=== PATIENT | female | born 2000 | race African-American/Black ===

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

== ENCOUNTER 2018-12-20 09:44 | Day surgery (SDC) | payer OTHER ==
[~2018-12-20] VITALS: Ht 162.6 cm; Wt 74.5 kg
[2018-12-20] MEDS ORDERED: RINGERS SOLUTION,LACTATED 1,000 ML IV ONE ×2 (09:52→10:30)
[2018-12-20] MEDS ORDERED: NAPR-1193 PO (10:27)
[2018-12-20 10:39] LABS: BASOPHILS % (AUTO) 0.6 % (0.0-2.0); EOSINOPHILS % (AUTO) 6.8 % (1.0-6.0); HEMATOCRIT 37.4 % (36-46); HEMOGLOBIN 12.4 g/dL (12.0-16.0); LYMPHOCYTES # (AUTO) 1.6 K/uL (1.0-4.8); LYMPHOCYTES % (AUTO) 29.4 % (22.0-44.0); MEAN CORPUSCULAR HEMOGLOBIN 27.2 pg (26.0-34.0); MEAN CORPUSCULAR HGB CONC 33.1 G/dL (31.0-37.0); MEAN CORPUSCULAR VOLUME 82 fL (80-100); MONOCYTES # (AUTO) 0.4 K/uL (0.1-1.0); MONOCYTES % (AUTO) 6.7 % (2.0-9.0); NEUTROPHILS % (AUTO) 56.5 % (40.0-70.0); PLATELET COUNT (AUTO) 285 K/uL (150-450); RED BLOOD CELL COUNT(AUTO) 4.55 MIL/uL (4.00-5.20)
[2018-12-20] MEDS ORDERED: OXYTOCIN 10 UNITS/ML VIAL IM ONE ×2 (11:14→11:18)
[2018-12-20] MEDS ORDERED: METHYLERGONOVINE MALEATE 0.2 MG/ML VIAL ONE (11:14)
[2018-12-20] MEDS ORDERED: BUPIVACAINE HCL/PF 0.25% 30 ML VIAL ONE (11:49)
[2018-12-20] MEDS ORDERED: KETOROLAC TROMETHAMINE 60 MG/2 ML VIAL IM ONE (12:00)
[2018-12-20] MEDS ORDERED: PROPOFOL 1% 20 ML VIAL IVP ONE (12:00)
[2018-12-20] MEDS ORDERED: LIDOCAINE/PF 2% 5 ML VIAL INJ ONE (12:00)
== END 2018-12-20 13:20 | disposition home or self-care (01) ==
LOC: SURGERY 09:44
PROVIDERS: ATTEND Obstetrics & Gynecology
DX: O02.1 Missed abortion (principal); I10 Essential (primary) hypertension; Z79.899 Other long term (current) drug therapy
CPT/HCPCS: 36415; 59820; 85025; 86850; 86900; 86901; 88305; J1885; J2704; J3490 ×2; J7120; J2210; J2590

== ENCOUNTER 2018-12-25 21:05 | Emergency (ER) | payer OTHER ==
[~2018-12-25] VITALS: Ht 162.6 cm; Wt 75.5 kg
[~2018-12-25 21:05] MED LIST changes: +NAPR-1193 PO; -NOCURR
[2018-12-25] MEDS ORDERED: IBUP-2077 PO (21:28)
[2018-12-25 22:41] LABS: BASOPHILS % (AUTO) 0.5 % (0.0-2.0); EOSINOPHILS % (AUTO) 7.8 % (1.0-6.0); HEMATOCRIT 35.6 % (36-46); HEMOGLOBIN 11.7 g/dL (12.0-16.0); LYMPHOCYTES # (AUTO) 3.1 K/uL (1.0-4.8); LYMPHOCYTES % (AUTO) 34.6 % (22.0-44.0); MEAN CORPUSCULAR HEMOGLOBIN 27.1 pg (26.0-34.0); MEAN CORPUSCULAR HGB CONC 32.9 G/dL (31.0-37.0); MEAN CORPUSCULAR VOLUME 82 fL (80-100); MONOCYTES # (AUTO) 0.7 K/uL (0.1-1.0); NEUTROPHILS # (AUTO) 4.4 K/uL (1.8-7.7); NEUTROPHILS % (AUTO) 49.1 % (40.0-70.0); PLATELET COUNT (AUTO) 307 K/uL (150-450); RED BLOOD CELL COUNT(AUTO) 4.32 MIL/uL (4.00-5.20); RED CELL DISTRIBUTION WIDTH 16.5 % (11.5-14.5)
[2018-12-25 22:48] LABS: APPEARANCE,URINE CLOUDY (CLEAR); BILIRUBIN,URINE NEGATIVE (NEGATIVE); GLUCOSE, URINE (UA) NEGATIVE (NEGATIVE); KETONES,URINE TRACE mg/dL (NEGATIVE); LEUKOCYTE ESTERASE ,URINE SMALL (NEGATIVE); NITRATE,URINE NEGATIVE (NEGATIVE); OCCULT BLOOD,URINE LARGE (NEGATIVE); PROTEIN,URINE POS 1+ (NEGATIVE); UROBILINOGEN,URINE 0.2 mg/dL (<=1.0)
[2018-12-25 22:54] LABS: ANION GAP 5 mmol/L (8-16); CALCIUM, TOTAL 9.1 mg/dL (8.8-10.5); CARBON DIOXIDE 28 mmol/L (22-29); CHLORIDE 102 mmol/L (98-107); CREATININE 1.09 mg/dL (0.60-1.30); GLOMERULAR FILTR. RATE CALC > 60 mL/min (>60); GLUCOSE,RANDOM 100 mg/dL (70-110); POTASSIUM 3.7 mmol/L (3.5-5.1); SODIUM SERUM 135 mmol/L (136-145); UREA NITROGEN, BLOOD 8 mg/dL (7-18)
[2018-12-25 22:57] LABS: BACTERIA,URINE Few /HPF (None Seen); RBC,URINE >100 /HPF (0-2); SQUAMOUS EPITHELIAL CELL,UR Few /LPF (None Seen)
[2018-12-25 23:08] LABS: ALANINE AMINOTRANSFERASE 71 U/L (12-78); ALBUMIN 3.8 g/dL (3.4-5.0); ALKALINE PHOSPHATASE 53 U/L (46-116); ASPARTATE AMINOTRANSFERASE 35 U/L (15-37); BILIRUBIN,TOTAL 0.2 mg/dL (0.1-1.0); HCG,QUANTITATIVE 83 mIU/mL (0-6); TOTAL PROTEIN, SERUM 7.7 g/dL (6.4-8.2)
[2018-12-25] MEDS ORDERED: ACETAMINOPHEN 500 MG TABLET PO ONE (23:30)
[2018-12-25] MEDS ORDERED: SODIUM CHLORIDE 0.9% 1,000 ML IV ONE (23:30)
[2018-12-26] MEDS ORDERED: HYDROCODONE/ACETAMINOPHEN 5-325 MG TABLET PO ONE
[2018-12-26 00:14] VITALS: BP 128/74
== END 2018-12-26 00:26 | disposition home or self-care (01) ==
LOC: EMS 21:07
DX: N92.0 Excessive and frequent menstruation with regular cycle (principal); R10.2 Pelvic and perineal pain
CPT/HCPCS: 87086; J7030

== ENCOUNTER 2018-12-28 11:58 | Emergency (ER) | payer OTHER ==
[~2018-12-28] VITALS: Ht 162.6 cm; Wt 76.4 kg
[~2018-12-28 11:58] MED LIST changes: +IBUP-2077 PO; -NAPR-1193 PO
[2018-12-28 12:40] LABS: BASOPHILS % (AUTO) 0.4 % (0.0-2.0); EOSINOPHILS % (AUTO) 8.6 % (1.0-6.0); HEMOGLOBIN 11.6 g/dL (12.0-16.0); LYMPHOCYTES % (AUTO) 34.8 % (22.0-44.0); MEAN CORPUSCULAR HEMOGLOBIN 27.3 pg (26.0-34.0); MEAN CORPUSCULAR HGB CONC 33.2 G/dL (31.0-37.0); MEAN CORPUSCULAR VOLUME 82 fL (80-100); MONOCYTES # (AUTO) 0.4 K/uL (0.1-1.0); MONOCYTES % (AUTO) 7.7 % (2.0-9.0); NEUTROPHILS # (AUTO) 2.7 K/uL (1.8-7.7); NEUTROPHILS % (AUTO) 48.5 % (40.0-70.0); PLATELET COUNT (AUTO) 298 K/uL (150-450); RED BLOOD CELL COUNT(AUTO) 4.25 MIL/uL (4.00-5.20); RED CELL DISTRIBUTION WIDTH 16.5 % (11.5-14.5)
[2018-12-28 14:42] VITALS: BP 139/77
== END 2018-12-28 14:30 | disposition home or self-care (01) ==
LOC: EMS 11:58
DX: O03.9 Complete or unspecified spontaneous abortion without complication (principal); Z3A.01 Less than 8 weeks gestation of pregnancy

== ENCOUNTER 2019-08-04 20:10 | Observation (INO) | payer OTHER ==
[~2019-08-04] VITALS: Ht 162.6 cm; Wt 85.9 kg
[2019-08-04] MEDS ORDERED: FERR240T6 PO (20:28)
[2019-08-04] MEDS ORDERED: ACETAMINOPHEN 325 MG TABLET PO ONE (21:15)
[2019-08-04 21:30] VITALS: BP 129/67
[2019-08-04 21:36] LABS: APPEARANCE,URINE CLEAR (CLEAR); BILIRUBIN,URINE NEGATIVE (NEGATIVE); GLUCOSE, URINE (UA) 500 mg/dL (NEGATIVE); KETONES,URINE NEGATIVE (NEGATIVE); LEUKOCYTE ESTERASE ,URINE NEGATIVE (NEGATIVE); NITRATE,URINE NEGATIVE (NEGATIVE); OCCULT BLOOD,URINE TRACE (NEGATIVE); PH,URINE 6.5 (5.0-8.0); PROTEIN,URINE NEGATIVE (NEGATIVE); UROBILINOGEN,URINE 0.2 mg/dL (<=1.0)
[2019-08-04 21:47] LABS: BACTERIA,URINE None Seen /HPF (None Seen); RBC,URINE 0-2 /HPF (0-2); SQUAMOUS EPITHELIAL CELL,UR Few /LPF (None Seen); WBC,URINE None Seen /HPF (0-5); YEAST,URINE None Seen /HPF (None Seen)
== END 2019-08-04 22:00 | disposition home or self-care (01) ==
LOC: EMS 20:11 → 4S 20:44
PROVIDERS: ADMIT Obstetrics & Gynecology; ATTEND Obstetrics & Gynecology
DX: O26.892 Other specified pregnancy related conditions, second trimester (principal); R10.30 Lower abdominal pain, unspecified; Z3A.20 20 weeks gestation of pregnancy
CPT/HCPCS: 81001; G0378

== ENCOUNTER 2019-09-08 12:15 | Observation (INO) | payer OTHER ==
[~2019-09-08] VITALS: Ht 162.6 cm; Wt 87.7 kg
[~2019-09-08 12:15] MED LIST changes: +FERR240T6 PO; -IBUP-2077 PO
[2019-09-08] MEDS ORDERED: MAGNESIUM HYDROXIDE SUSPENSION 30 ML UDCUP PO ONE (13:15)
[2019-09-08] MEDS ORDERED: PREN-18 PO (13:29)
[2019-09-08 13:31] VITALS: BP 120/62
== END 2019-09-08 14:15 | disposition home or self-care (01) ==
LOC: EMS 12:19 → INTOOBSV 12:45 → 4S 12:45
PROVIDERS: ADMIT Obstetrics & Gynecology; ATTEND Obstetrics & Gynecology
DX: O9A.212 Injury, poisoning and certain other consequences of external causes complicating pregnancy, second trimester (principal); S90.562A Insect bite (nonvenomous), left ankle, initial encounter; O99.612 Diseases of the digestive system complicating pregnancy, second trimester; K59.00 Constipation, unspecified; Z3A.25 25 weeks gestation of pregnancy; W57.XXXA Bitten or stung by nonvenomous insect and other nonvenomous arthropods, initial encounter
CPT/HCPCS: 99284; G0378; 99219

== ENCOUNTER 2019-09-10 18:07 | Observation (INO) | payer OTHER ==
[~2019-09-10 18:07] MED LIST changes: +PREN-18 PO
[2019-09-10 18:30] VITALS: BP 118/68
[2019-09-10 19:02] LABS: GLUCOMETER DEV NAME(LOC) 4S.; GLUCOSE,POINT OF CARE 138 MG/DL (70-110)
[2019-09-10 20:17] LABS: BASOPHILS % (AUTO) 0.4 % (0.0-2.0); EOSINOPHILS % (AUTO) 1.7 % (1.0-6.0); HEMATOCRIT 36.9 % (36-46); HEMOGLOBIN 12.6 g/dL (12.0-16.0); LYMPHOCYTES # (AUTO) 1.8 K/uL (1.0-4.8); LYMPHOCYTES % (AUTO) 22.8 % (22.0-44.0); MEAN CORPUSCULAR HEMOGLOBIN 29.4 pg (26.0-34.0); MEAN CORPUSCULAR HGB CONC 34.1 G/dL (31.0-37.0); MEAN CORPUSCULAR VOLUME 86 fL (80-100); MONOCYTES # (AUTO) 0.7 K/uL (0.1-1.0); MONOCYTES % (AUTO) 8.7 % (2.0-9.0); NEUTROPHILS # (AUTO) 5.3 K/uL (1.8-7.7); NEUTROPHILS % (AUTO) 66.4 % (40.0-70.0); PLATELET COUNT (AUTO)-OB 223 K/uL (150-450); RED BLOOD CELL COUNT(AUTO) 4.28 MIL/uL (4.00-5.20)
[2019-09-10 20:32] LABS: ANION GAP 9 mmol/L (8-16); CALCIUM, TOTAL 8.8 mg/dL (8.8-10.5); CARBON DIOXIDE 25 mmol/L (22-29); CHLORIDE 102 mmol/L (98-107); CREATININE 0.57 mg/dL (0.60-1.30); GLOMERULAR FILTR. RATE CALC > 60 mL/min (>60); GLUCOSE,RANDOM 101 mg/dL (70-110); POTASSIUM 3.2 mmol/L (3.5-5.1); SODIUM SERUM 136 mmol/L (136-145); UREA NITROGEN, BLOOD 5 mg/dL (7-18)
[2019-09-10 20:37] LABS: ALANINE AMINOTRANSFERASE 14 U/L (12-78); ALBUMIN 3.1 g/dL (3.4-5.0); ALKALINE PHOSPHATASE 86 U/L (46-116); ASPARTATE AMINOTRANSFERASE 13 U/L (15-37); BILIRUBIN,TOTAL 0.2 mg/dL (0.1-1.0); TOTAL PROTEIN, SERUM 7.5 g/dL (6.4-8.2); URIC ACID 4.1 mg/dL (2.6-7.2)
== END 2019-09-10 21:45 | disposition home or self-care (01) ==
LOC: 4S 18:07
PROVIDERS: ADMIT Obstetrics & Gynecology Obstetrics; ATTEND Obstetrics & Gynecology Obstetrics
DX: O26.892 Other specified pregnancy related conditions, second trimester (principal); R51 Headache; H53.8 Other visual disturbances; Z3A.26 26 weeks gestation of pregnancy
CPT/HCPCS: 36415; 80053; 80307; 81001; 82962; 84550; 85025; G0378

== ENCOUNTER 2019-09-23 20:01 | Observation (INO) | payer OTHER ==
[~2019-09-23] VITALS: Ht 162.6 cm; Wt 84.8 kg
[~2019-09-23 20:01] MED LIST changes: -FERR240T6 PO
[2019-09-23 23:02] VITALS: BP 111/60
== END 2019-09-23 22:50 | disposition home or self-care (01) ==
LOC: 4S 20:01
PROVIDERS: ADMIT Obstetrics & Gynecology; ATTEND Obstetrics & Gynecology
DX: O62.9 Abnormality of forces of labor, unspecified (principal); O26.852 Spotting complicating pregnancy, second trimester; Z3A.27 27 weeks gestation of pregnancy
CPT/HCPCS: 59025; 76805; G0378

== ENCOUNTER 2019-10-16 16:16 | Observation (INO) | payer OTHER ==
[~2019-10-16] VITALS: Ht 162.6 cm; Wt 85.7 kg
[2019-10-16 16:35] VITALS: BP 128/60
[2019-10-16] MEDS ORDERED: INSU100V36 SQ (16:51)
[2019-10-16] MEDS ORDERED: INSNPH SQ (16:51)
== END 2019-10-16 18:50 | disposition home or self-care (01) ==
LOC: 4S 16:16
PROVIDERS: ADMIT Obstetrics & Gynecology; ATTEND Obstetrics & Gynecology
DX: O60.03 Preterm labor without delivery, third trimester (principal); O24.419 Gestational diabetes mellitus in pregnancy, unspecified control; O26.853 Spotting complicating pregnancy, third trimester; Z3A.31 31 weeks gestation of pregnancy
CPT/HCPCS: 36415; 59025; 81001; 89060; G0378

== ENCOUNTER 2019-10-31 10:20 | Observation (INO) | payer OTHER ==
[~2019-10-31] VITALS: Ht 162.6 cm; Wt 85.4 kg
[~2019-10-31 10:20] MED LIST changes: +INSNPH SQ; +INSU100V36 SQ
[2019-10-31 11:06] VITALS: BP 116/64
[2019-10-31 11:44] LABS: GLUCOMETER DEV NAME(LOC) 4S.; GLUCOSE,POINT OF CARE 78 MG/DL (70-110)
== END 2019-10-31 12:20 | disposition home or self-care (01) ==
LOC: 4S 10:20
PROVIDERS: ADMIT Obstetrics & Gynecology; ATTEND Obstetrics & Gynecology
DX: O36.8130 Decreased fetal movements, third trimester, not applicable or unspecified (principal); O24.414 Gestational diabetes mellitus in pregnancy, insulin controlled; O23.43 Unspecified infection of urinary tract in pregnancy, third trimester; Z3A.33 33 weeks gestation of pregnancy
CPT/HCPCS: 59025; 99219

== ENCOUNTER 2019-11-08 14:20 | Observation (INO) | payer OTHER ==
[~2019-11-08] VITALS: Ht 162.6 cm; Wt 86.6 kg
[2019-11-08] MEDS ORDERED: ACETAMINOPHEN 325 MG TABLET PO ONE (15:45)
[2019-11-08 19:00] LABS: GLUCOMETER DEV NAME(LOC) 4S.; GLUCOSE,POINT OF CARE 70 MG/DL (70-110)
== END 2019-11-08 18:30 | disposition home or self-care (01) ==
LOC: 4S 14:20
PROVIDERS: ADMIT Obstetrics & Gynecology; ATTEND Obstetrics & Gynecology
DX: O26.893 Other specified pregnancy related conditions, third trimester (principal); R10.2 Pelvic and perineal pain; M54.9 Dorsalgia, unspecified; Z3A.34 34 weeks gestation of pregnancy
CPT/HCPCS: 86592; 87110; 87210; 87491; 87591; 99219

== ENCOUNTER 2019-12-07 05:07 | Inpatient (IN) | payer OTHER ==
[~2019-12-07] VITALS: Ht 162.6 cm; Wt 89.1 kg
[2019-12-07] MEDS ORDERED: ACETAMINOPHEN 500 MG TABLET PO ONE (05:30)
[2019-12-07] MEDS ORDERED: HydrALAZINE HCL 20 MG/ML VIAL IVP ONE (05:45)
[2019-12-07 05:54] LABS: HEMATOCRIT 38.7 % (36-46); LYMPHOCYTES % (AUTO) 12.4 % (22.0-44.0); MEAN CORPUSCULAR HEMOGLOBIN 29.1 pg (26.0-34.0); MEAN CORPUSCULAR HGB CONC 33.5 G/dL (31.0-37.0); MEAN CORPUSCULAR VOLUME 87 fL (80-100); NEUTROPHILS % (AUTO) 77.2 % (40.0-70.0); PLATELET COUNT (AUTO) 189 K/uL (150-450); RED BLOOD CELL COUNT(AUTO) 4.45 MIL/uL (4.00-5.20); RED CELL DISTRIBUTION WIDTH 14.2 % (11.5-14.5)
[2019-12-07 05:55] LABS: BASOPHILS % (AUTO) 0.3 % (0.0-2.0); EOSINOPHILS % (AUTO) 4.1 % (1.0-6.0); LYMPHOCYTES # (AUTO) 1.1 K/uL (1.0-4.8); MONOCYTES # (AUTO) 0.5 K/uL (0.1-1.0); NEUTROPHILS # (AUTO) 6.9 K/uL (1.8-7.7)
[2019-12-07 06:11] LABS: APPEARANCE,URINE CLEAR (CLEAR); BILIRUBIN,URINE NEGATIVE (NEGATIVE); GLUCOSE, URINE (UA) NEGATIVE (NEGATIVE); KETONES,URINE NEGATIVE (NEGATIVE); LEUKOCYTE ESTERASE ,URINE TRACE (NEGATIVE); NITRATE,URINE NEGATIVE (NEGATIVE); OCCULT BLOOD,URINE LARGE (NEGATIVE); PH,URINE 7.5 (5.0-8.0); PROTEIN,URINE POS 1+ (NEGATIVE)
[2019-12-07 06:12] LABS: WBC,URINE 0-2 /HPF (0-5)
[2019-12-07 06:13] LABS: ALANINE AMINOTRANSFERASE 679 U/L (12-78); ALBUMIN 2.9 g/dL (3.4-5.0); ALKALINE PHOSPHATASE 108 U/L (46-116); ANION GAP 9 mmol/L (8-16); ASPARTATE AMINOTRANSFERASE 217 U/L (15-37); BACTERIA,URINE Few /HPF (None Seen); BILIRUBIN,TOTAL 0.6 mg/dL (0.1-1.0); CALCIUM, TOTAL 8.5 mg/dL (8.8-10.5); CARBON DIOXIDE 27 mmol/L (22-29); CHLORIDE 104 mmol/L (98-107); CREATININE 0.94 mg/dL (0.60-1.30); GLOMERULAR FILTR. RATE CALC > 60 mL/min (>60); GLUCOSE,RANDOM 99 mg/dL (70-110); LACTATE DEHYDROGENASE 441 U/L (81-234); SODIUM SERUM 140 mmol/L (136-145); SQUAMOUS EPITHELIAL CELL,UR Rare /LPF (None Seen); TOTAL PROTEIN, SERUM 6.1 g/dL (6.4-8.2); UREA NITROGEN, BLOOD 10 mg/dL (7-18)
[2019-12-07 06:15] LABS: B-TYPE NATRIURETIC PEPTIDE 259 pg/mL (0-100)
[2019-12-07 06:17] LABS: POTASSIUM 2.7 mmol/L (3.5-5.1)
[2019-12-07 06:24] LABS: URIC ACID 5.6 mg/dL (2.6-7.2)
[2019-12-07] MEDS ORDERED: POTASSIUM CHLORIDE 20 MEQ ER TABLET PO ONE (06:45)
[2019-12-07] MEDS ORDERED: MAGNESIUM SULFATE 500 ML IV ONE (08:15)
[2019-12-07] MEDS ORDERED: CALCIUM GLUCONATE 100 MG/ML 10 ML IVP PRN (08:15)
[2019-12-07] MEDS ORDERED: MAGNESIUM SULFATE 4 GM/WATER 100 ML IV ONE (08:15)
[2019-12-07] MEDS ORDERED: RINGERS SOLUTION,LACTATED 1,000 ML IV ONE (09:22)
[2019-12-07] MEDS: RINGERS SOLUTION,LACTATED 1,000 ML IV SCH ×2 (09:49→22:28)
[2019-12-07] MEDS: ACETAMINOPHEN 500 MG TABLET PO PRN ×2 (13:04→21:52)
[2019-12-07 15:03] VITALS: BP 165/85
[2019-12-07] MEDS ORDERED: IBUP-2070 PO (20:04)
[2019-12-07] MEDS: MAGNESIUM SULFATE 500 ML IV SCH (21:02)
[2019-12-08] MEDS: ACETAMINOPHEN 500 MG TABLET PO PRN ×2 (03:53→14:38)
[2019-12-08 05:34] LABS: ALANINE AMINOTRANSFERASE 482 U/L (12-78); ALBUMIN 2.9 g/dL (3.4-5.0); ALKALINE PHOSPHATASE 109 U/L (46-116); ANION GAP 8 mmol/L (8-16); ASPARTATE AMINOTRANSFERASE 92 U/L (15-37); BILIRUBIN,TOTAL 0.6 mg/dL (0.1-1.0); CARBON DIOXIDE 31 mmol/L (22-29); CHLORIDE 105 mmol/L (98-107); CREATININE 0.96 mg/dL (0.60-1.30); GLOMERULAR FILTR. RATE CALC > 60 mL/min (>60); GLUCOSE,RANDOM 94 mg/dL (70-110); SODIUM SERUM 144 mmol/L (136-145); TOTAL PROTEIN, SERUM 6.6 g/dL (6.4-8.2); UREA NITROGEN, BLOOD 8 mg/dL (7-18)
[2019-12-08 05:39] LABS: POTASSIUM 2.6 mmol/L (3.5-5.1)
[2019-12-08] MEDS ORDERED: POTASSIUM CHLORIDE 20 MEQ ER TABLET PO PRN (06:00)
[2019-12-08] MEDS: MAGNESIUM SULFATE 500 ML IV SCH (06:35)
[2019-12-08] MEDS: RINGERS SOLUTION,LACTATED 1,000 ML IV SCH (10:54)
[2019-12-08 11:31] LABS: MAGNESIUM MATERNAL 5.4 mg/dL (4.90-7.30)
[2019-12-08 11:46] LABS: POTASSIUM 2.7 mmol/L (3.5-5.1)
[2019-12-08] MEDS ORDERED: POTASSIUM CHLORIDE 20 MEQ ER TABLET PO ONE (12:00)
[2019-12-08] MEDS ORDERED: LABE100T8 PO (12:11)
== END 2019-12-08 14:45 | disposition home or self-care (01) | DRG 561 ==
LOC: EMS 05:07 → 4S 08:24
PROVIDERS: ADMIT Obstetrics & Gynecology; ATTEND Obstetrics & Gynecology
DX: O14.15 Severe pre-eclampsia, complicating the puerperium (principal); E87.6 Hypokalemia; O24.439 Gestational diabetes mellitus in the puerperium, unspecified control; O99.285 Endocrine, nutritional and metabolic diseases complicating the puerperium
CPT/HCPCS: 70450; 76705; 83615; 83735; 84132; 84550; 93005; 93970; 99291; J0360; J3475; J7120

== ENCOUNTER 2020-04-15 16:19 | Emergency (ER) | payer OTHER ==
[~2020-04-15] VITALS: Ht 162.6 cm; Wt 77.3 kg
[~2020-04-15 16:19] MED LIST changes: +IBUP-2070 PO; -INSNPH SQ; -INSU100V36 SQ; +LABE100T8 PO; +NIFE-64 PO; -PREN-18 PO; +SPIR25 PO
[2020-04-15 16:28] VITALS: BP 121/64
[2020-04-15] MEDS ORDERED: PERTUSS(ACELL),DIPH,TET VAC/PF 0.5 ML VIAL IM ONE (17:00)
[2020-04-15] MEDS ORDERED: IBUPROFEN 800 MG TABLET PO ONE (17:00)
== END 2020-04-15 17:20 | disposition home or self-care (01) ==
LOC: EMS 16:19
DX: S91.331A Puncture wound without foreign body, right foot, initial encounter (principal); I10 Essential (primary) hypertension; W54.0XXA Bitten by dog, initial encounter; Y93.89 Activity, other specified; Y92.89 Other specified places as the place of occurrence of the external cause; Y99.8 Other external cause status
CPT/HCPCS: 90471; 90715; 99283

== ENCOUNTER 2020-12-08 05:38 | Day surgery (SDC) | payer OTHER ==
[2020-12-07 12:57] LABS: COVID AG,FIA SOURCE NASOPHARYNGEAL
[2020-12-07 12:59] LABS: BASOPHILS % (AUTO) 0.9 % (0.0-2.0); EOSINOPHILS % (AUTO) 6.7 % (1.0-6.0); HEMATOCRIT 39.9 % (36-46); HEMOGLOBIN 13.5 g/dL (12.0-16.0); LYMPHOCYTES # (AUTO) 2.5 K/uL (1.0-4.8); LYMPHOCYTES % (AUTO) 44.6 % (22.0-44.0); MEAN CORPUSCULAR HEMOGLOBIN 29.2 pg (26.0-34.0); MEAN CORPUSCULAR HGB CONC 33.7 G/dL (31.0-37.0); MEAN CORPUSCULAR VOLUME 87 fL (80-100); MONOCYTES # (AUTO) 0.5 K/uL (0.1-1.0); NEUTROPHILS # (AUTO) 2.2 K/uL (1.8-7.7); NEUTROPHILS % (AUTO) 38.8 % (40.0-70.0); PLATELET COUNT (AUTO) 235 K/uL (150-450); RED BLOOD CELL COUNT(AUTO) 4.61 MIL/uL (4.00-5.20); RED CELL DISTRIBUTION WIDTH 13.6 % (11.5-14.5)
[2020-12-07 13:10] LABS: ANION GAP 7 mmol/L (8-16); CALCIUM, TOTAL 9.3 mg/dL (8.8-10.5); CARBON DIOXIDE 30 mmol/L (22-29); CHLORIDE 105 mmol/L (98-107); CREATININE 0.92 mg/dL (0.60-1.30); GLOMERULAR FILTR. RATE CALC > 60 mL/min (>60); GLUCOSE,RANDOM 88 mg/dL (70-110); POTASSIUM 4.2 mmol/L (3.5-5.1); SODIUM SERUM 142 mmol/L (136-145); UREA NITROGEN, BLOOD 10 mg/dL (7-18)
[2020-12-07 13:22] LABS: HCG,QUANTITATIVE < 1 mIU/mL (0-6)
[~2020-12-08] VITALS: Ht 162.6 cm; Wt 84.5 kg
[~2020-12-08 05:38] MED LIST changes: +LABE100T51 PO; -LABE100T8 PO; +RINGERS SOLUTION,LACTATED 1,000 ML IV ONE; +SPIR-37 PO; -SPIR25 PO
[2020-12-08] MEDS ORDERED: RINGERS SOLUTION,LACTATED 1,000 ML IV ONE ×2 (05:46→08:17)
[2020-12-08] MEDS ORDERED: SUGAMMADEX SODIUM 200 MG/2 ML VIAL IVP ONE (07:07)
[2020-12-08] MEDS ORDERED: BUPIVACAINE HCL/PF 0.25% 30 ML VIAL ONE (07:07)
[2020-12-08] MEDS ORDERED: HYDROmorphone 2 MG/ML VIAL IVP PRN (07:45)
[2020-12-08] MEDS ORDERED: FentaNYL CITRATE PF 100 MCG/2 ML VIAL IVP PRN (07:45)
[2020-12-08] MEDS ORDERED: MEPERIDINE-PF 25 MG/ML VIAL IVP PRN (07:45)
[2020-12-08] MEDS ORDERED: OXYGEN THERAPY IH SCH (08:00)
[2020-12-08] MEDS ORDERED: DEXAMETHASONE SOD PHOS 4 MG/ML VIAL IVP ONE (12:00)
[2020-12-08] MEDS ORDERED: KETOROLAC TROMETHAMINE 60 MG/2 ML VIAL IM ONE (12:00)
[2020-12-08] MEDS ORDERED: LIDOCAINE/PF 2% 5 ML VIAL IM ONE (12:00)
[2020-12-08] MEDS ORDERED: ROCURONIUM BROMIDE 10 MG/ML 5 ML VIAL IVP ONE (12:00)
[2020-12-08] MEDS ORDERED: ONDANSETRON HCL 4 MG/2 ML VIAL IVP ONE (12:00)
[2020-12-08] MEDS ORDERED: PROPOFOL 1% 20 ML VIAL IVP ONE (12:00)
== END 2020-12-08 11:40 | disposition home or self-care (01) ==
LOC: SURGERY 05:38
PROVIDERS: ATTEND Student in an Organized Health Care Education/Training Program
DX: Z30.2 Encounter for sterilization (principal); Z79.899 Other long term (current) drug therapy; Z98.890 Other specified postprocedural states
CPT/HCPCS: 36415 ×2; 58670; 80048; 84702; 85025; 86850; 86900; 86901; 87426; 88302; C9803; J1100; J1885; J2405; J2704; J3490 ×3; J7120; Q9967

== ENCOUNTER 2022-01-23 15:34 | Emergency (ER) | payer OTHER ==
[~2022-01-23] VITALS: Ht 162.6 cm; Wt 77.3 kg
[~2022-01-23 15:34] MED LIST changes: -RINGERS SOLUTION,LACTATED 1,000 ML IV ONE
[2022-01-23 15:54] VITALS: BP 141/71
[2022-01-23] MEDS ORDERED: AMOX500C2 PO (16:14)
[2022-01-23] MEDS ORDERED: CARBAMIDE PEROXIDE 6.5% 15 ML OTIC SOLUTION AU ONE (16:15)
[2022-01-23] MEDS ORDERED: CARB-223 AU (16:17)
== END 2022-01-23 16:41 | disposition home or self-care (01) ==
LOC: EMS 15:41
DX: H66.92 Otitis media, unspecified, left ear (principal); H61.23 Impacted cerumen, bilateral; I10 Essential (primary) hypertension; Z79.899 Other long term (current) drug therapy
CPT/HCPCS: 69209; 99283

== ENCOUNTER 2022-03-20 20:02 | Emergency (ER) | payer OTHER ==
[~2022-03-20] VITALS: Ht 162.6 cm; Wt 75.0 kg
[~2022-03-20 20:02] MED LIST changes: +AMOX500C2 PO; +CARB-223 AU; +IBUP-1492 PO; -IBUP-2070 PO
[2022-03-20 20:08] VITALS: BP 115/72
== END 2022-03-20 21:16 | disposition home or self-care (01) ==
LOC: EMS 20:02
DX: Z53.21 Procedure and treatment not carried out due to patient leaving prior to being seen by health care provider (principal)

== ENCOUNTER 2022-05-02 11:18 | Emergency (ER) | payer OTHER ==
[~2022-05-02] VITALS: Ht 162.6 cm; Wt 83.6 kg
[2022-05-02 13:26] LABS: BASOPHILS % (AUTO) 0.5 % (0.0-2.0); EOSINOPHILS % (AUTO) 8.1 % (1.0-6.0); HEMATOCRIT 41.5 % (36-46); HEMOGLOBIN 13.8 g/dL (12.0-16.0); LYMPHOCYTES # (AUTO) 2.2 K/uL (1.0-4.8); LYMPHOCYTES % (AUTO) 33.7 % (22.0-44.0); MEAN CORPUSCULAR HEMOGLOBIN 28.6 pg (26.0-34.0); MEAN CORPUSCULAR HGB CONC 33.3 G/dL (31.0-37.0); MEAN CORPUSCULAR VOLUME 86 fL (80-100); MONOCYTES # (AUTO) 0.5 K/uL (0.1-1.0); MONOCYTES % (AUTO) 6.9 % (2.0-9.0); NEUTROPHILS # (AUTO) 3.4 K/uL (1.8-7.7); NEUTROPHILS % (AUTO) 50.8 % (40.0-70.0); PLATELET COUNT (AUTO) 262 K/uL (150-450); RED BLOOD CELL COUNT(AUTO) 4.82 MIL/uL (4.00-5.20); RED CELL DISTRIBUTION WIDTH 14.8 % (11.5-14.5)
[2022-05-02 13:34] LABS: ANION GAP 7 mmol/L (8-16); CALCIUM, TOTAL 9.5 mg/dL (8.8-10.5); CARBON DIOXIDE 26 mmol/L (22-29); CHLORIDE 103 mmol/L (98-107); CREATININE 0.86 mg/dL (0.60-1.30); GLOMERULAR FILTR. RATE CALC > 60 mL/min (>60); GLUCOSE,RANDOM 83 mg/dL (70-110); POTASSIUM 3.9 mmol/L (3.5-5.1); SODIUM SERUM 136 mmol/L (136-145); UREA NITROGEN, BLOOD 7 mg/dL (7-18)
[2022-05-02 13:39] LABS: ALANINE AMINOTRANSFERASE 19 U/L (12-78); ALBUMIN 4.2 g/dL (3.4-5.0); ALKALINE PHOSPHATASE 49 U/L (46-116); ASPARTATE AMINOTRANSFERASE 26 U/L (15-37); BILIRUBIN,TOTAL 0.2 mg/dL (0.1-1.0); TOTAL PROTEIN, SERUM 8.2 g/dL (6.4-8.2)
[2022-05-02] MEDS ORDERED: IBUP-1554 PO (14:23)
[2022-05-02] MEDS ORDERED: BACL10TA PO (14:23)
[2022-05-02 14:27] VITALS: BP 125/80
== END 2022-05-02 14:42 | disposition home or self-care (01) ==
LOC: EMS 11:29
DX: R20.2 Paresthesia of skin (principal); M62.838 Other muscle spasm; I10 Essential (primary) hypertension
CPT/HCPCS: 80053; 84703; 85025; 99283

== ENCOUNTER 2022-10-22 12:13 | Emergency (ER) | payer OTHER ==
[~2022-10-22] VITALS: Ht 170.2 cm; Wt 83.6 kg
[~2022-10-22 12:13] MED LIST changes: -AMOX500C2 PO; +BACL10TA PO; -CARB-223 AU; -IBUP-1492 PO; +IBUP-1554 PO; -LABE100T51 PO; -NIFE-64 PO; -SPIR-37 PO
[2022-10-22] MEDS ORDERED: POLY238P PO (14:14)
[2022-10-22 15:18] VITALS: BP 101/50; PULSE 88; RESP 16; TEMP 98.3
== END 2022-10-22 15:23 | disposition home or self-care (01) ==
LOC: EMS 12:16
DX: K64.9 Unspecified hemorrhoids (principal); K59.00 Constipation, unspecified; I10 Essential (primary) hypertension; Z98.890 Other specified postprocedural states
CPT/HCPCS: 99282; Z7502

== ENCOUNTER 2023-01-28 19:50 | Emergency (ER) | payer OTHER ==
[~2023-01-28] VITALS: Ht 165.1 cm; Wt 83.6 kg
[~2023-01-28 19:50] MED LIST changes: +POLY238P PO
[2023-01-28 19:54] VITALS: TEMP 99.3
[2023-01-28 20:51] LABS: APPEARANCE,URINE CLEAR (CLEAR); BILIRUBIN,URINE NEGATIVE (NEGATIVE); COLOR,URINE LIGHT YELLOW (YELLOW); GLUCOSE, URINE (UA) NEGATIVE (NEGATIVE); KETONES,URINE NEGATIVE (NEGATIVE); LEUKOCYTE ESTERASE ,URINE MODERATE (NEGATIVE); NITRATE,URINE NEGATIVE (NEGATIVE); OCCULT BLOOD,URINE NEGATIVE (NEGATIVE); PROTEIN,URINE NEGATIVE (NEGATIVE); UROBILINOGEN,URINE <=1.0 mg/dL (<=1.0)
[2023-01-28 20:53] LABS: HCG,QUAL URINE NEGATIVE (NEGATIVE)
[2023-01-28 21:00] LABS: BACTERIA,URINE Few /HPF (None Seen); RBC,URINE 0-2 /HPF (0-2); SQUAMOUS EPITHELIAL CELL,UR Moderate /LPF (None Seen)
[2023-01-28 21:30] LABS: BASOPHILS % (AUTO) 0.4 % (0.0-2.0); EOSINOPHILS % (AUTO) 5.8 % (1.0-6.0); HEMATOCRIT 36.6 % (36-46); HEMOGLOBIN 12.3 g/dL (12.0-16.0); LYMPHOCYTES % (AUTO) 25.6 % (22.0-44.0); MEAN CORPUSCULAR HGB CONC 33.6 G/dL (31.0-37.0); MEAN CORPUSCULAR VOLUME 80 fL (80-100); MONOCYTES # (AUTO) 0.6 K/uL (0.1-1.0); MONOCYTES % (AUTO) 7.2 % (2.0-9.0); NEUTROPHILS # (AUTO) 4.7 K/uL (1.8-7.7); PLATELET COUNT (AUTO) 312 K/uL (150-450); RED BLOOD CELL COUNT(AUTO) 4.56 MIL/uL (4.00-5.20); RED CELL DISTRIBUTION WIDTH 15.8 % (11.5-14.5); WHITE BLOOD COUNT (AUTO) 7.8 K/uL (4.5-11.0)
[2023-01-28 21:43] LABS: ANION GAP 5 mmol/L (8-16); CARBON DIOXIDE 26 mmol/L (22-29); CHLORIDE 102 mmol/L (98-107); CREATININE 1.04 mg/dL (0.60-1.30); GLOMERULAR FILTR. RATE CALC > 60 mL/min (>60); GLUCOSE,RANDOM 116 mg/dL (70-110); POTASSIUM 3.5 mmol/L (3.5-5.1); SODIUM SERUM 133 mmol/L (136-145); UREA NITROGEN, BLOOD 11 mg/dL (7-18)
[2023-01-28 21:49] LABS: ALANINE AMINOTRANSFERASE 17 U/L (12-78); ALBUMIN 3.6 g/dL (3.4-5.0); ALKALINE PHOSPHATASE 68 U/L (46-116); ASPARTATE AMINOTRANSFERASE 16 U/L (15-37); BILIRUBIN,TOTAL 0.2 mg/dL (0.1-1.0); LIPASE 45 U/L (16-77); TOTAL PROTEIN, SERUM 8.3 g/dL (6.4-8.2)
[2023-01-28] MEDS ORDERED: CEPH-558 PO (22:26)
[2023-01-28 22:37] VITALS: BP 110/76; PULSE 73; RESP 14
== END 2023-01-28 22:39 | disposition home or self-care (01) ==
LOC: EMS 19:52
DX: N39.0 Urinary tract infection, site not specified (principal); I10 Essential (primary) hypertension; Z98.51 Tubal ligation status; Z98.890 Other specified postprocedural states
CPT/HCPCS: 80053; 81001; 83690; 84703; 85025; 87086; 87186; 99283

== ENCOUNTER 2023-03-23 22:03 | Emergency (ER) | payer OTHER ==
[~2023-03-23 22:03] MED LIST changes: -BACL10TA PO; +CEPH-558 PO; -IBUP-1554 PO
== END 2023-03-24 04:41 | disposition left against medical advice (07) ==
LOC: EMS 22:04
DX: Z53.21 Procedure and treatment not carried out due to patient leaving prior to being seen by health care provider (principal)

== ENCOUNTER 2023-06-15 23:36 | Emergency (ER) | payer OTHER ==
[~2023-06-15] VITALS: Ht 165.1 cm; Wt 83.6 kg
[2023-06-16 01:04] LABS: BASOPHILS % (AUTO) 0.6 % (0.0-2.0); EOSINOPHILS % (AUTO) 5.6 % (1.0-6.0); HEMATOCRIT 35.6 % (36-46); HEMOGLOBIN 11.7 g/dL (12.0-16.0); LYMPHOCYTES # (AUTO) 2.6 K/uL (1.0-4.8); LYMPHOCYTES % (AUTO) 49.1 % (22.0-44.0); MEAN CORPUSCULAR HEMOGLOBIN 25.7 pg (26.0-34.0); MEAN CORPUSCULAR HGB CONC 32.9 G/dL (31.0-37.0); MEAN CORPUSCULAR VOLUME 78 fL (80-100); MONOCYTES # (AUTO) 0.5 K/uL (0.1-1.0); MONOCYTES % (AUTO) 9.2 % (2.0-9.0); NEUTROPHILS # (AUTO) 1.9 K/uL (1.8-7.7); NEUTROPHILS % (AUTO) 35.5 % (40.0-70.0); PLATELET COUNT (AUTO) 261 K/uL (150-450); RED BLOOD CELL COUNT(AUTO) 4.55 MIL/uL (4.00-5.20); RED CELL DISTRIBUTION WIDTH 16.4 % (11.5-14.5); WHITE BLOOD COUNT (AUTO) 5.3 K/uL (4.5-11.0)
[2023-06-16] MEDS: ACETAMINOPHEN 500 MG TABLET PO ONE (01:04)
[2023-06-16 01:13] LABS: ANION GAP 11 mmol/L (8-16); CALCIUM, TOTAL 8.9 mg/dL (8.8-10.5); CARBON DIOXIDE 25 mmol/L (22-29); CHLORIDE 104 mmol/L (98-107); CREATININE 0.89 mg/dL (0.60-1.30); GLOMERULAR FILTR. RATE CALC > 60 mL/min (>60); GLUCOSE,RANDOM 108 mg/dL (70-110); POTASSIUM 3.9 mmol/L (3.5-5.1); SODIUM SERUM 140 mmol/L (136-145); UREA NITROGEN, BLOOD 11 mg/dL (7-18)
[2023-06-16 01:18] VITALS: BP 113/66; PULSE 65; RESP 18; TEMP 97.8
[2023-06-16 01:31] LABS: TROPONIN I-HIGH SENSITIVITY Less Than 4 ng/L (<51)
[2023-06-16 01:37] LABS: ALANINE AMINOTRANSFERASE 19 U/L (12-78); ALBUMIN 3.3 g/dL (3.4-5.0); ALKALINE PHOSPHATASE 48 U/L (46-116); ASPARTATE AMINOTRANSFERASE 13 U/L (15-37); BILIRUBIN,TOTAL 0.1 mg/dL (0.1-1.0); CREATINE KINASE, TOTAL ONLY 115 U/L (26-192)
== END 2023-06-16 02:12 | disposition home or self-care (01) ==
LOC: EMS 23:36
DX: R07.89 Other chest pain (principal); I10 Essential (primary) hypertension; Z98.51 Tubal ligation status; Z98.890 Other specified postprocedural states
CPT/HCPCS: 80053; 82550; 84484; 84703; 85025; 93005; 99284

== ENCOUNTER 2024-04-17 00:13 | Emergency (ER) | payer OTHER ==
[~2024-04-17] VITALS: Ht 162.6 cm; Wt 87.3 kg
[2024-04-17 00:22] VITALS: BP 112/78; PULSE 88; RESP 16; TEMP 97.4; O2SAT 98
== END 2024-04-17 01:15 | disposition left against medical advice (07) ==
LOC: EMS 00:13
DX: K59.00 Constipation, unspecified (principal); R10.84 Generalized abdominal pain; Z53.21 Procedure and treatment not carried out due to patient leaving prior to being seen by health care provider
CPT/HCPCS: 93005